=== PATIENT | male | born 1985 | race African-American/Black ===

== ENCOUNTER 2017-03-31 12:05 | Emergency (ER) | payer SELFPAY ==
[~2017-03-31] VITALS: Ht 188 cm; Wt 154.2 kg
[2017-03-31 14:23] VITALS: BP 102/62
== END 2017-03-31 14:46 | disposition home or self-care (01) ==
LOC: ER 12:05
DX: L03.317 Cellulitis of buttock (principal); Z88.8 Allergy status to other drugs, medicaments and biological substances

== ENCOUNTER 2017-04-04 15:17 | Emergency (ER) | payer MEDICAID ==
[~2017-04-04] VITALS: Ht 188 cm; Wt 158.8 kg
[2017-04-04 16:44] LABS: Basophils # (auto) 0 uL; Basophils % (auto) 0.4 % (0.0-2.0); CONDITION Y; Eosinophils # (auto) 0.3 uL; Eosinophils % (auto) 2.5 % (0.0-7.0); Hematocrit 42.5 % (41.0-53.0); Hemoglobin 14.2 g/dL (13.5-17.5); Lymphocytes # (auto) 2.3 uL; Lymphocytes % (auto) 19.2 % (10.0-50.0); Mean Corpuscular Hemoglobin 29.6 pg (28.0-32.0); Mean Corpuscular Hgb Conc. 33.3 g/dL (32.0-36.0); Mean Corpuscular Volume 88.7 fL (80.0-100.0); Mean Platelet Volume 8.3 fL (7.4-10.4); Monocytes # (auto) 0.6 uL; Neutrophils # (auto) 8.6 uL; Neutrophils % (auto) 72.9 % (37.0-80.0); Platelet Count (auto) 359 10^3/uL (140-450); Red Cell Distribution Width 13.9 % (11.6-16.0); White Blood Cell 11.7 10^3/uL (4.4-10.8)
[2017-04-04 16:57] LABS: Albumin 2.9 g/dL (3.4-5.0); Calcium 8.9 mg/dL (8.5-10.1); Potassium 3.9 mmol/L (3.5-5.1)
[2017-04-04 16:59] LABS: BUN/Creatinine Ratio 11.1
[2017-04-04 17:01] LABS: Bilirubin, Total 0.2 mg/dL (0.2-1.0); Total Protein 7.2 g/dL (6.4-8.2)
[2017-04-04] MEDS ORDERED: MORPHINE SULFATE 4 MG/ML SYRG IM ONE (18:15)
[2017-04-04] MEDS ORDERED: ONDANSETRON HCL 4 MG/2 ML VIAL IM ONE (18:15)
[2017-04-04 18:43] VITALS: BP 137/78
== END 2017-04-04 18:53 | disposition home or self-care (01) ==
LOC: ER 15:17
DX: L02.31 Cutaneous abscess of buttock (principal); Z88.8 Allergy status to other drugs, medicaments and biological substances
CPT/HCPCS: 10060; 36415; 80053; 85025; 96372; 99284; C1887; J2270; J2405